=== PATIENT | male | born 1980 | race Caucasian/White ===

== ENCOUNTER 2018-04-22 23:12 | Emergency (ER) | payer BC ==
[2018-04-22 23:15] VITALS: BP 145/86
[2018-04-22] MEDS ORDERED: TEST2.5G2 (23:18)
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
[2018-04-22 23:55] LABS: PLATELET COUNT, AUTOMATED 305 K/uL (150-450)
[2018-04-23] MEDS ORDERED: TEST200V IM (09:55)
[2018-04-23] MEDS ORDERED: MULT-1167 PO (09:58)
[2018-04-24] MEDS ORDERED: MIRT-1 PO (10:38)
== END 2018-04-23 00:56 ==
LOC: ER 23:26
DX: F32.1 Major depressive disorder, single episode, moderate (principal); F51.04 Psychophysiologic insomnia
CPT/HCPCS: 36415; 80305; 80320; 80329; 81001; 82040; 82247; 82310; 82374; 82435; 82565; 82947; 83735; 84075; 84132; 84155; 84295; 84443; 84450; 84460; 84520; 85025; 99284

== ENCOUNTER 2018-04-23 00:34 | Inpatient (IN) | payer BC ==
[~2018-04-23] VITALS: Ht 165.1 cm; Wt 91.6 kg
[~2018-04-23 00:34] MED LIST: TEST2.5G2
[2018-04-23] MEDS ORDERED: DIAZEPAM 10 MG TAB PO ONE ×2 (00:40→21:05)
[2018-04-23] MEDS ORDERED: ACETAMINOPHEN 325 MG TAB PO PRN (01:05)
[2018-04-23] MEDS ORDERED: MAG HYD/AL HYD/SIMETH 30ML UDC PO PRN (01:05)
[2018-04-23 01:07] VITALS: BP 132/95
[2018-04-23] MEDS: MULTIVITAMINS TAB PO SCH (08:17)
[2018-04-23] MEDS ORDERED: TESTOSTERONE TP SCH (09:00)
[2018-04-23] MEDS ORDERED: TEST200V IM (09:55)
[2018-04-23] MEDS ORDERED: MULT-1167 PO (09:58)
[2018-04-23 13:11] VITALS: BP 128/87
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
[2018-04-23] MEDS ORDERED: MIRTAZAPINE 15 MG TAB PO SCH (21:00)
[2018-04-23 21:59] VITALS: BP 140/83
[2018-04-24] MEDS: MULTIVITAMINS TAB PO SCH (09:44)
--- NOTE | 2018-04-24 10:12 | BHS Progress Note ---
S - Subjective Progress Notes Subjective " I feel better". Patient responding well with improved sleep last night with remeron. Patient likely was nearing delirious state upon arrival to hospital, and mosque of sleep will likely correct much of this patients difficulties. Will plan on discharge to home tomorrow, likely accompanied by family members. No medication changes today, will focus on stress management today. Patient interacting well on multiple phone calls with his father and . Suicidal Ideation: None Homicidal Ideation: None S - Objective Physical Exam Vital Signs Vital Signs Date Time Temp Pulse Resp B/P (MAP) Pulse Ox O2 Delivery O2 Flow Rate FiO2 04/23/18 21:59 98.6 64 140/83 (102) 94 Room Air 04/23/18 01:07 16 Muscle Strength and Tone: WNL Gait and Station: Steady [facility] Medications Reviewed: Side Effects, Benefits of Medication, Risks Allergies Reviewed: Yes Mental Status Exam General Appearance: Casual, Well Groomed, Good Eye Contact, Cooperative, Polite, Good Interaction; No Tearful, No Psychomotor Agitation, No Psychomotor Retardation, No Bizarre Mannerisms, No Tics Speech: Clear, Spontaneous, Normal Rate, Normal Rhythm, Normal Volume, Normal Tone; No Garbled, No Rambling, No Inappropriate Mood: Dysthmic/Depressed (improving rapidly) Affect: Full and Appropriate, Calm; No Withdrawn, No Tearful, No Anxious, No Agitated Thought Process: Organized, Logical, Goal Directed; No Loose Associations, No Flight of Ideas Thought Content: Suicidal Ideation (resolved); No Homicidal Ideation, No Delusions, No Auditory Halllucinations, No Visual Hallucinations, No Thought Broadcasting, No Ideas of Reference, No Obsessions, No Compulsions Sensorium: Clear Cognition: Alert & Oriented-Person, Alert & Oriented-Place, Alert & Oriented- Time, [id number] Memory: Immediate, Recent, Remote Intelligence: Average Insight Judgment: Fair [facility] Assessment and Plan [id number] Encounter Date: Apr 24, 2018 [id number] Encounter Time: 10:00 [facility] Plan: Necessary Precautions, Individual/Group Therapy, Admin/Titrate Meds, Educate Patient Tobacco Medications: Not Appropriate Condition Multpiple Antipsychotics Used: No Problems: (1) Adjustment disorder with mixed anxiety and depressed mood Status: Acute Condition 1. will continue same medication dose tonight, 2. plan for discharge this afternoon. SULY JOHNSON MD Apr 24, 2018 10:12
[2018-04-24] MEDS ORDERED: MIRT-1 PO (10:38)
--- NOTE | 2018-04-24 12:01 | SCHAAF DISCHARGE ---
DATE OF ADMISSION: April 23, 2018 DATE OF DISCHARGE: April 24, 2018 ATTENDING PHYSICIAN Marcellus Mitchell MD Patient was seen at approximately 1000 hours on the a.m. of April 24, 2018 for note concerning this dictation. FINAL DIAGNOSES Adjustment disorder with anxious and depressed mood, rule out persisting depressive disorder and rule out partner relational problem, although patient noted a very supportive family overall. REASON FOR ADMISSION Please see History and Physical for full details. This is a very pleasant 38-year-old male who appeared to be on the verge of delirium at time of presentation due to poor sleep and multiple identifiable social stressors. Please see History and Physical for full details. The patient was admitted to the Unit. He was given 10 mg Diazepam on the first night. Patient slept well. The patient noted great improvement after receiving some sleep. Mood improved. Patient better able to tolerate identifiable stressors. Patient was then switched to Remeron at 15 mg at bedtime the next evening and sleep and mood continued to improve. Patient talked with his and his father at various times throughout his stay. Patient's communicated with staff here at the hospital as well. No reservations were verbalized concerning patient's release. Patient remained very pleasant and cooperative throughout this stay and took a very active role in his treatment. Patient was discharged to home to continue outpatient treatment. Suicidal ideations were resolved and patient not displaying any parasuicidal behaviors on the Unit. PHYSICAL EXAMINATION Please see emergency room note. Notable for depressed appearing 38-year-old male. At time of admission, no acute medical distress. Vital signs: Temperature 98.7, pulse 69, respiratory rate 12, blood pressure 145/86, pulse oximetry 92 on room air. At the time of discharge from [facility], vital signs showed temperature 98.6, pulse 64, respiratory rate 16], blood pressure 140/83 and pulse oximetry 94]% on room air. LABORATORY DATA CBC at time of admission notable for red blood cells elevated at 6.30, hemoglobin and hematocrit elevated at 18.4 and 53.6. Chemistry panel unremarkable. TSH 4.46, in normal limits. Toxicology screen negative with a nondetectable serum alcohol level. Urinalysis: Urine white blood cells were present, negative for nitrates and esterase. Patient having no acute complaints. Toxicology screen negative for substances of abuse with a nondetectable serum alcohol level. MENTAL STATUS EXAMINATION GENERAL APPEARANCE, BEHAVIOR AND ATTITUDE: This is a pleasant, cooperative, 38-year-old male. No periods of tearfulness. No bizarre mannerisms or tics. No psychomotor agitation or retardation. Patient making good eye contact. No periods of tearfulness. SPEECH: Within normal limits. Regular rate, rhythm, volume and tone. MOOD: Described as improved. AFFECT: Full at times and mood-congruent. THOUGHT PROCESSES: Goal-directed, logical. No loose associations or flight of ideas. THOUGHT CONTENT: Free of auditory or visual hallucinations, ideas of reference, thought broadcastings, delusions, obsessions or compulsions. The patient is adamantly denying suicidal or homicidal ideation at time of discharge. SENSORIUM: Clear. COGNITION: Alert and oriented to person, place, time and situation. MEMORY: Immediate, recent and remote was estimated intact. INTELLIGENCE: Average, based on interview. INSIGHT AND JUDGMENT: Grossly intact and appropriate for ongoing outpatient care. RESULTS OF TESTING Imaging: None. Laboratory data: See above. CONSULTATIONS None. TREATMENT Patient received medications, participated in individual and group therapy. HOSPITAL COURSE The patient was calm, cooperative and polite throughout his stay, taking a very active role in his treatment. Patient appeared to be a very accurate historian. Contact with patient's was made, who lives in [place]. Patient would be returning there. No reservations concerning the patient's discharge were given. CONDITION OF PATIENT ON DISCHARGE Stable. Considered a minimal risk to himself or others and appropriate for ongoing outpatient care. DISPOSITION The patient was discharged to home. Care would follow up in [place] for continued outpatient therapy and medication management. Discharge medications included Remeron 7.5 to 15 mg p.o. at bedtime, multivitamin with minerals daily. Crisis line was given should symptoms return. The risks, benefits and alternatives of the above discharge plan were discussed. Informed consent was given to proceed with the above discharge plan by this competent patient and patient's present on the phone. KIRK
[2018-04-24 12:15] VITALS: BP 136/78
== END 2018-04-24 14:13 | disposition home or self-care (01) | DRG 882 ==
LOC: BHS 00:34
PROVIDERS: ADMIT Psychiatry & Neurology Psychiatry; ATTEND Psychiatry & Neurology Psychiatry
DX: F43.23 Adjustment disorder with mixed anxiety and depressed mood (principal); G47.00 Insomnia, unspecified; Z63.0 Problems in relationship with spouse or partner; Z56.4 Discord with boss and workmates; Z81.8 Family history of other mental and behavioral disorders; Z81.4 Family history of other substance abuse and dependence; Z62.810 Personal history of physical and sexual abuse in childhood; Z62.811 Personal history of psychological abuse in childhood